=== PATIENT | female | born 1970 | race Caucasian/White ===

== ENCOUNTER 2022-10-29 07:48 | Observation (INO) ==
[2022-10-29] MEDS ORDERED: ONDANSETRON INJ 2 MG/ML 2 ML VIAL IV STA (08:22)
[2022-10-29] MEDS ORDERED: SODIUM CHLORIDE 0.9% 1,000 ML IV ONE (08:22)
[2022-10-29] MEDS ORDERED: KETOROLAC TROMETHAMINE 15 MG/ML VIAL IV STA (08:22)
--- NOTE | 2022-10-29 08:22 | Emergency Department Note ---
History of Present Illness General Chief complaint: Flu Like Symptoms Stated complaint: VOMITING, ABDOMINAL PAIN, COUGH, FEVER Time Seen by Provider: 10/29/22 08:00 History of Present Illness Maximum Pain Intensity: 5 52-year-old female who presents to the emergency department accompanied by her daughter for evaluation of fevers, vomiting/diarrhea, and cough. Patient states for the last 2 days she has been having multiple episodes of vomiting and has been unable to keep anything down. She also notes diarrhea. She has intermittent diffuse abdominal pain which seems to be associated with her episodes of vomiting. She also reports a productive cough for the last 3 weeks. She has been having intermittent fevers and chills. She notes sinus congestion. She denies chest pain or shortness of breath. She reports having oral surgery on Sunday with bone grafting but otherwise been in her usual state of health. She denies any significant past medical history including asthma or COPD. She only takes OTC allergy medication for stational allergies. She is a smoker. She has been taking Tylenol and NyQuil for her symptoms. No recent antibiotic use. Home Medications Medication Instructions Recorded Confirmed Type ibuprofen 200 mg tablet (Advil) 200 mg PO Q6H PRN Pain 10/29/22 10/29/22 History loratadine-pseudoephedrine ER 10 1 tab PO DAILY 10/29/22 10/29/22 History mg-240 mg tablet,extended [id number] (Claritin-D 24 Hour) Allergies Allergy/AdvReac Type Severity Reaction Status Date / Time No Known Allergies Allergy Unverified 10/29/22 12:37 Past Med/Surg History Social History Smoking Status: Current every day smoker Tobacco Type: Cigarettes Preferred Language: Occitan Feels Safe at Home: Yes Physical Exam Vital Signs Vital Signs - 24 hr 10/29/22 07:55 10/29/22 08:57 10/29/22 08:55 Temperature 36.9 C Temperature Source Temporal Artery Scan Pulse Rate 105 H 85 Pulse Rate [Apical] 77 Pulse Rate from SpO2 Sensor Pulse Rhythm [Apical] Respiratory Rate 16 14 Respiratory Effort / Characteristics Non-Labored Respiratory Depth Normal Respiratory Pattern Blood Pressure 132/92 Blood Pressure [Right Arm] 115/78 Blood Pressure Mean 105 Blood Pressure Mean [Right Arm] 90 Pulse Oximetry 96 94 Oxygen Delivery Method Room Air Room Air Sepsis Recent Fever Within 48 Hours Yes Sepsis New/Unexplained Change in Mental Status No Sepsis Action Taken by Nursing No Action Required 10/29/22 09:00 10/29/22 09:30 10/29/22 10:00 Temperature Temperature Source Pulse Rate 71 69 69 Pulse Rate [Apical] Pulse Rate from SpO2 Sensor 71 68 70 Pulse Rhythm [Apical] Respiratory Rate 17 13 14 Respiratory Effort / Characteristics Respiratory Depth Respiratory Pattern Blood Pressure Blood Pressure [Right Arm] Blood Pressure Mean Blood Pressure Mean [Right Arm] Pulse Oximetry 97 96 95 Oxygen Delivery Method Sepsis Recent Fever Within 48 Hours Sepsis New/Unexplained Change in Mental Status Sepsis Action Taken by Nursing 10/29/22 10:30 10/29/22 10:30 10/29/22 11:00 Temperature Temperature Source Pulse Rate 76 67 Pulse Rate [Apical] Pulse Rate from SpO2 Sensor 75 67 Pulse Rhythm [Apical] Respiratory Rate 13 11 L Respiratory Effort / Characteristics Respiratory Depth Respiratory Pattern Blood Pressure 126/61 Blood Pressure [Right Arm] Blood Pressure Mean 84 Blood Pressure Mean [Right Arm] Pulse Oximetry 94 94 Oxygen Delivery Method Room Air Room Air Sepsis Recent Fever Within 48 Hours Sepsis New/Unexplained Change in Mental Status Sepsis Action Taken by Nursing 10/29/22 11:01 10/29/22 11:01 10/29/22 11:30 Temperature Temperature Source Pulse Rate 69 75 Pulse Rate [Apical] Pulse Rate from SpO2 Sensor 69 75 Pulse Rhythm [Apical] Respiratory Rate 11 L 13 Respiratory Effort / Characteristics Respiratory Depth Respiratory Pattern Blood Pressure 136/79 Blood Pressure [Right Arm] Blood Pressure Mean 105 Blood Pressure Mean [Right Arm] Pulse Oximetry 95 93 Oxygen Delivery Method Room Air Room Air Sepsis Recent Fever Within 48 Hours Sepsis New/Unexplained Change in Mental Status Sepsis Action Taken by Nursing 10/29/22 12:23 10/29/22 12:30 10/29/22 13:00 Temperature Temperature Source Pulse Rate 74 Pulse Rate [Apical] 75 Pulse Rate from SpO2 Sensor 75 Pulse Rhythm [Apical] Regular Respiratory Rate 14 Respiratory Effort / Characteristics Non-Labored Spontaneous Respiratory Depth Normal Respiratory Pattern Regular Blood Pressure 126/66 Blood Pressure [Right Arm] 136/64 Blood Pressure Mean 75 Blood Pressure Mean [Right Arm] 88 Pulse Oximetry 94 92 Oxygen Delivery Method Room Air Room Air Sepsis Recent Fever Within 48 Hours Sepsis New/Unexplained Change in Mental Status Sepsis Action Taken by Nursing 10/29/22 13:00 10/29/22 13:30 10/29/22 14:00 Temperature Temperature Source Pulse Rate 68 Pulse Rate [Apical] Pulse Rate from SpO2 Sensor 71 69 Pulse Rhythm [Apical] Respiratory Rate 12 Respiratory Effort / Characteristics Respiratory Depth Respiratory Pattern Blood Pressure 126/63 Blood Pressure [Right Arm] Blood Pressure Mean 88 Blood Pressure Mean [Right Arm] Pulse Oximetry 94 94 Oxygen Delivery Method Room Air Room Air Sepsis Recent Fever Within 48 Hours Sepsis New/Unexplained Change in Mental Status Sepsis Action Taken by Nursing 10/29/22 14:00 Temperature Temperature Source Pulse Rate 73 Pulse Rate [Apical] Pulse Rate from SpO2 Sensor 72 Pulse Rhythm [Apical] Respiratory Rate 16 Respiratory Effort / Characteristics Respiratory Depth Respiratory Pattern Blood Pressure Blood Pressure [Right Arm] Blood Pressure Mean Blood Pressure Mean [Right Arm] Pulse Oximetry 95 Oxygen Delivery Method Room Air Sepsis Recent Fever Within 48 Hours Sepsis New/Unexplained Change in Mental Status Sepsis Action Taken by Nursing Constitutional: alert and oriented x3. no acute distress. Nontoxic HEENT: normocephalic, atraumatic. normal conjunctiva.PERRLA. EOM's grossly intact. TMs pearly taylor without effusion. Pharynx pink without exudate. Tonsils nonenlarged. Mucus membranes moist Neck: neck is supple, nontender. No cervical lymphadenopathy Respiratory: lungs are clear to auscultation without wheezes, rhonchi, or rales bilaterally. equal chest rise. normal respiratory effort, no accessory muscle use. Cardiovascular: normal heart sounds without murmur. regular rate and rhythm. GI: abdomen is soft, nondistended. Mild diffuse abdominal tenderness to palpation. No palpable masses. No rebound tenderness or guarding. No CVA tenderness MSK: Moves all 4 extremities spontaneously Peripheral vascular: extremities warm and well perfused Neuro: without focal neuro deficits. CNII-XII intact. Speech clear, tongue midline, without facial droop. Strength equal throughout all for extremities. Psych:appropriate mood and affect. Course Reevaluation(s) Reevaluation #1: 10a: Resting comfortably in bed. She reports feeling much better after the fluids, Zofran and Toradol. She no longer feels nauseous and her abdominal pain is improved. She was updated on labs and imaging to this point. Labs demonstrate significant transaminitis with ALT 1435 and AST 753. Alk phos and total bilirubin within normal limits. No leukocytosis or acute anemia. Normal renal function. Normal lipase. CXR unremarkable. Patient does report frequent Tylenol use over the last 2 to 3 days from her dental surgery but otherwise nothing prior. Denies alcohol use. No history of elevated liver enzymes/hepatitis. Discussed adding on acute hepatitis panel, monotest as well as liver ultrasound for further evaluation. She was agreeable to this. Reevaluation #2: 1235p: Liver US demonstrates cholelithiasis and biliary sludge with gallbladder mildly distended/thickened measuring 3 to 4 mm. There is trace pericholecystic fluid. Common bile duct measuring 0.6 cm. Acute cholecystitis cannot be excluded. 1250: Consult to general surgery Dr. Kumar given ultrasound findings was made. She reviewed lab and imaging results and has low suspicion for acute cholecystitis given isolated transaminitis with no elevated alk phos or total bilirubin. She suspects a primary liver issue ie viral etiology and recommended admission to the medicine service for further work-up. No indication for emergent surgical intervention at this time. Hepatitis panel still pending. These recommendations were relayed to patient and she was agreeable to admission to the hospital for further work-up. 1312p: Case discussed with hospitalist, Dr. Mercado, who graciously accepted patient to his service for further evaluation Administered Medications Discontinued Medications Sodium Chloride (Nss 1000ml) 1,000 mls @ 999 mls/hr IV .Q1H1M ONE Stop: 10/29/22 09:22 Last Infusion: 10/29/22 09:49 Dose: 0 mls/hr Documented By: Admin: 10/29/22 08:52 Dose: 999 mls/hr Documented By: JEFFERY Ioversol (Optiray 320 100ml) 94 ml IV ONCE ONE Stop: 10/29/22 14:13 Last Admin: 10/29/22 14:13 Dose: 94 ml Documented By: NAIDA Ketorolac Tromethamine (Ketorolac Tromethamine 15 Mg/Ml Vial) 15 mg IV NOW STA Stop: 10/29/22 08:23 Last Admin: 10/29/22 08:54 Dose: 15 mg Documented By: JEFFERY Ondansetron HCl (Ondansetron Inj 2 Mg/Ml 2 Ml Vial) 4 mg IV NOW STA Stop: 10/29/22 08:23 Last Admin: 10/29/22 08:54 Dose: 4 mg Documented By: JEFFERY Medical Decision Making Differential Diagnosis Viral URI, otitis media, strep pharyngitis, pneumonia, influenza, ACS, pancreatitis, acute cholecystitis, urinary tract infection, sepsis, as well as other pathologies. Laboratory Data Attestation: I reviewed the patient's lab results. 10/29/22 08:45 10/29/22 08:45 Lab Results 10/29/22 10/29/22 10/29/22 Range/Units 08:45 08:45 08:45 WBC 7.25 (4.8-10.8) K/ul RBC 4.99 (4.20-5.40) M/uL Hgb 16.0 (12.0-16.0) g/dl Hct 44.1 (37.0-47.0) % MCV 88.4 (80.0-100.0) fL MCH 32.1 (25.0-34.0) pg MCHC 36.3 H (32.0-36.0) g/dL RDW Std Deviation 42.5 (36.4-46.3) fL RDW Coeff of Vu 13.2 (11.5-14.5) % Plt Count 222 (130-400) K/uL MPV 9.8 (9.4-12.4) fL Immature Gran % (Auto) 0.3 % Neut % (Auto) 63.4 % Lymph % (Auto) 25.2 % Motley % (Auto) 7.4 % Eos % (Auto) 3.0 % Baso % (Auto) 0.7 % Neut # (Auto) 4.59 (1.40-6.50) K/uL Lymph # (Auto) 1.83 (1.20-3.40) K/uL Motley # (Auto) 0.54 (0.11-0.59) K/uL Eos # (Auto) 0.22 (0.00-0.50) K/uL Baso # (Auto) 0.05 (0.00-0.20) K/uL Immature Gran # (Auto) 0.02 (0.01-0.20) K/uL PT (9.0-12.0) Seconds INR (0.9-1.1) Sodium 133 L (136-145) mmol/L Potassium 3.7 (3.5-5.1) mmol/L Chloride 99 (98-107) mmol/L Carbon Dioxide 23 (21-32) mmol/L Anion Gap 11 (3-11) BUN 11 (6-23) mg/dl Creatinine 0.57 L (0.6-1.2) mg/dl Est Cr Clr Drug Dosing Not Reportable Est GFR ( Amer) 123.5 ml/min Est GFR (Non-Af Amer) 106.6 ml/min BUN/Creatinine Ratio 19.3 (10-20) Glucose 104 H (70-99(Fasting)) mg/dl Calcium 9.0 (8.6-10.3) mg/dl Total Bilirubin 0.6 (0.2-1.0) mg/dl AST 753 H (13-39) U/L ALT 1454 H (7-52) U/L Alkaline Phosphatase 68 (34-104) U/L Troponin I High Sens 7.2 (0-14) pg/ml Total Protein 6.9 (6.0-8.3) gm/dl Albumin 4.0 (3.4-5.0) gm/dl Globulin 2.9 (2.5-4.0) gm/dl Albumin/Globulin Ratio 1.4 (0.9-2) Lipase 9 L (11-82) U/L Urine Color Urine Appearance (Clear) Urine pH (4.5-7.5) Ur Specific Webster (1.000-1.030) Urine Protein (Negative) Urine Glucose (UA) (Negative) Urine Ketones (Negative) Urine Blood (Negative) Urine Nitrite (Negative) Urine Bilirubin (Negative) Urine Urobilinogen (Negative) Ur Leukocyte Esterase (Negative) Urine WBC (Auto) (0-5) /hpf Urine RBC (Auto) (0-4) /hpf U Hyaline Cast (Auto) (0-5) /lpf U Epithel Cells (Auto) (0-5) /lpf Urine Bacteria (Auto) (Negative) Urine Mucus (None Prsent) Urine Yeast SARS-CoV-2 (PCR) (Negative) Monoscreen Negative (Negative) Influenza Type A (PCR) (Neg) Influenza Type B (PCR) (Neg) RSV (RT-PCR) (Neg) 10/29/22 10/29/22 10/29/22 Range/Units 08:45 08:50 10:13 WBC (4.8-10.8) K/ul RBC (4.20-5.40) M/uL Hgb (12.0-16.0) g/dl Hct (37.0-47.0) % MCV (80.0-100.0) fL MCH (25.0-34.0) pg MCHC (32.0-36.0) g/dL RDW Std Deviation (36.4-46.3) fL RDW Coeff of Vu (11.5-14.5) % Plt Count (130-400) K/uL MPV (9.4-12.4) fL Immature Gran % (Auto) % Neut % (Auto) % Lymph % (Auto) % Motley % (Auto) % Eos % (Auto) % Baso % (Auto) % Neut # (Auto) (1.40-6.50) K/uL Lymph # (Auto) (1.20-3.40) K/uL Motley # (Auto) (0.11-0.59) K/uL Eos # (Auto) (0.00-0.50) K/uL Baso # (Auto) (0.00-0.20) K/uL Immature Gran # (Auto) (0.01-0.20) K/uL PT 12.0 (9.0-12.0) Seconds INR 1.1 (0.9-1.1) Sodium (136-145) mmol/L Potassium (3.5-5.1) mmol/L Chloride (98-107) mmol/L Carbon Dioxide (21-32) mmol/L Anion Gap (3-11) BUN (6-23) mg/dl Creatinine (0.6-1.2) mg/dl Est Cr Clr Drug Dosing Est GFR ( Amer) ml/min Est GFR (Non-Af Amer) ml/min BUN/Creatinine Ratio (10-20) Glucose (70-99(Fasting)) mg/dl Calcium (8.6-10.3) mg/dl Total Bilirubin (0.2-1.0) mg/dl AST (13-39) U/L ALT (7-52) U/L Alkaline Phosphatase (34-104) U/L Troponin I High Sens (0-14) pg/ml Total Protein (6.0-8.3) gm/dl Albumin (3.4-5.0) gm/dl Globulin (2.5-4.0) gm/dl Albumin/Globulin Ratio (0.9-2) Lipase (11-82) U/L Urine Color Yellow Urine Appearance Cloudy A (Clear) Urine pH 6.0 (4.5-7.5) Ur Specific Webster 1.012 (1.000-1.030) Urine Protein Negative (Negative) Urine Glucose (UA) Negative (Negative) Urine Ketones 2+ H (Negative) Urine Blood Negative (Negative) Urine Nitrite Negative (Negative) Urine Bilirubin Negative (Negative) Urine Urobilinogen Negative (Negative) Ur Leukocyte Esterase 1+ H (Negative) Urine WBC (Auto) 10-30 H (0-5) /hpf Urine RBC (Auto) 0-4 (0-4) /hpf U Hyaline Cast (Auto) 5-10 H (0-5) /lpf U Epithel Cells (Auto) >30 H (0-5) /lpf Urine Bacteria (Auto) 1+ H (Negative) Urine Mucus Present A (None Prsent) Urine Yeast Not Reportable SARS-CoV-2 (PCR) NEGATIVE (Negative) Monoscreen (Negative) Influenza Type A (PCR) Negative (Neg) Influenza Type B (PCR) Negative (Neg) RSV (RT-PCR) Negative (Neg) Imaging Data My Impression: CXR per my interpretation without focal consolidation, pleural effusion or pneumothorax Radiologist's Impression: Chest X-Ray 10/29/22 08:14 SINGLE VIEW CHEST CLINICAL HISTORY: Cough FINDINGS: An AP, portable, upright chest radiograph is obtained. No prior studies are available for comparison at the time of dictation. The cardiomediastinal silhouette is unremarkable. The lungs and pleural spaces are clear. No pneumothorax is seen. The bony thorax is grossly intact. IMPRESSION: No active disease in the chest. ACT 112: Negative or not required by law. Electronically signed by: James Machuca M.D. 10/29/2022 8:48 AM Liver Ultrasound 10/29/22 10:07 ULTRASOUND RIGHT UPPER QUADRANT ABDOMEN CLINICAL HISTORY: Elevated hepatic transaminases. COMPARISON STUDY: No priors. TECHNIQUE: Real-time, grayscale, and color flow sonography of the right upper quadrant of the abdomen was performed. Images are reviewed in the transverse and longitudinal planes. FINDINGS: Liver: The liver is normal in size and echotexture. There is no intrahepatic biliary ductal dilatation. The main portal vein is patent. Gallbladder: A 7 mm shadowing calculus is noted. The gallbladder is mildly distended and contains both stones and sludge. The gallbladder wall is mildly thickened and edematous measuring 3 to 4 mm. There is trace pericholecystic fl uid. A sonographic Ahuja's sign is reportedly absent. The common bile duct measures up to 0.6 cm in diameter. Pancreas: Visualized portions of the pancreatic head and body are normal in appearance. The splenic vein is patent. Right kidney: Survey images of the right kidney demonstrate normal size and echotexture. There is no hydronephrosis. Ascites: None. IMPRESSION: 1. Cholelithiasis and biliary sludge within an abnormal appearing gallbladder. Acute cholecystitis is not excluded. Correlated with clinical and laboratory findings. If warranted this could be further assessed with a nuclear hepatic biliary scan. 2. There is no intra or extrahepatic biliary ductal dilatation. ACT 112: Negative or not required by law. Electronically signed by: James Machuca M.D. 10/29/2022 12:38 PM Abdomen/Pelvis CT 10/29/22 13:[address] WITH IV CONTRAST CT DOSE: 1340.23 mGy.cm HISTORY: Left lower quadrant abdominal pain. TECHNIQUE: Multiaxial CT images of the abdomen and pelvis were performed following the use of intravenous contrast. A dose lowering technique was ut ilized adhering to the principles of ALARA. COMPARISON STUDY: Abdominal ultrasound 10/29/2022. FINDINGS: The lung bases are clear. No pneumoperitoneum. No pneumatosis. No acute fractures identified. There is a punctate stone within the gallbladder. No gallbladder wall thickening. The liver, spleen, right adrenal gland, and pancreas are unremarkable. A 7 mm hypodense lesion within the right kidney is too small to characterize but favors a cyst. There is a 9 mm right renal stone. Normal left kidney. No ureteral stones. No hydronephrosis. There is a duplicated right renal collecting system. The ureters likely joint proximal to the right ureterovesical junction. There is a 1.5 cm indeterminate left adrenal gland nodule. The main portal vein is patent. No retroperitoneal lymphadenopathy. 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 The left external iliac artery is widely patent. The bladder, uterus, bilateral adnexa are unremarkable. No pelvic free fluid. Colonic diverticulosis. No evidence for acute diverticulitis. No bowel wall thickening or obstruction. Normal appendix. IMPRESSION: 1. No bowel wall thickening or obstruction. 2. Normal appendix. 3. Colonic diverticulosis. No evidence for acute diverticulitis. 4. Right-sided nephrolithiasis. No ureteral stones. No hydronephrosis. 5. Cholelithiasis. 6. A 1.5 cm indeterminate left adrenal gland nodule. 7. 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 The left external iliac artery is widely patent. This is age-indeterminate but likely chronic. ACT 112: Negative or not required by law. Electronically signed by: Arnold Guy M.D. 10/29/2022 2:28 PM MDM Narrative 52-year-old female who presents to the emergency department accompanied by daughter for evaluation of vomiting and diarrhea and cold-like symptoms. Review of pertinent visits and past medical history performed. Vital signs in ED stable, afebrile. Patient seen and evaluated as above. Please see course section for details. Physical exam relatively benign. She did have some mild diffuse abdominal tenderness but no focal tenderness including in the right upper quadrant. Work-up today significant for transaminitis otherwise unremarkable. I suspect a viral gastroenteritis based on presentation however not entirely clear the etiology. Hepatitis panel pending. We discussed admission to the hospital for further evaluation. Patient was agreeable to this. Case was discussed with hospitalist, Dr. Mercado who graciously excepted patient to his service for further evaluation. She was admitted in stable condition. Case was discussed with ED attending, Dr. Roper who agrees with work-up and treatment plan Impression & Plan Gastroenteritis, Elevated liver enzymes, Cholelithiasis, Cough, Abdominal pain, diffuse Discharge Plan Visit Data Chief Complaint: Flu Like Symptoms Stated Complaint: VOMITING, ABDOMINAL PAIN, COUGH, FEVER ED Provider: Tamia Roper ED Midlevel Provider: Ursula Alfonso Discharge Problem: Gastroenteritis, Elevated liver enzymes, Cholelithiasis, Cough, Abdominal pain, diffuse Patient Disposition: Admitted As Inpatient Forms Stand Alone Forms: [facility] [employer] Prescriptions Prescriptions: No Action Claritin-D 24 Hour 10-240 mg Tablet Extended Release 24 Hr 1 tab PO DAILY ibuprofen [Advil] 200 mg Tablet 200 mg PO Q6H PRN (Reason: Pain) Referrals Referrals: PCP,NO [Primary Care Provider] -
--- NOTE | 2022-10-29 08:50 | XRay Report ---
SINGLE VIEW CHEST CLINICAL HISTORY: Cough FINDINGS: An AP, portable, upright chest radiograph is obtained. No prior studies are available for c omparison at the time of dictation. The cardiomediastinal silhouette is unremarkable. The lungs and p leural spaces are clear. No pneumothorax is seen. The bony thorax is grossly intact. IMPRESSION: No active disease in the chest. ACT 112: Negative or not required by law. Electronically signed by: James Machuca M.D. 10/29/2022 8:48 AM
[2022-10-29 09:24] LABS: Basophils # (auto) 0.05 K/uL (0.00-0.20); Basophils % (auto) 0.7 %; Eosinophils # (auto) 0.22 K/uL (0.00-0.50); Hematocrit (blood only) 44.1 % (37.0-47.0); Immature Granulocytes # (auto) 0.02 K/uL (0.01-0.20); Immature Granulocytes % (auto) 0.3 %; Lymphocytes # (auto) 1.83 K/uL (1.20-3.40); Lymphocytes % (auto) 25.2 %; Mean Corpuscular Hemoglobin 32.1 pg (25.0-34.0); Mean Corpuscular Hgb Conc 36.3 g/dL (32.0-36.0); Mean Corpuscular Volume 88.4 fL (80.0-100.0); Mean Platelet Volume 9.8 fL (9.4-12.4); Monocytes # (auto) 0.54 K/uL (0.11-0.59); Monocytes % (auto) 7.4 %; Neutrophils # (auto) 4.59 K/uL (1.40-6.50); Neutrophils % (auto) 63.4 %; Platelet Count 222 K/uL (130-400); RDW Coefficient of Variation 13.2 % (11.5-14.5); RDW Standard Deviation 42.5 fL (36.4-46.3); Red Blood Count 4.99 M/uL (4.20-5.40); White Blood Count 7.25 K/ul (4.8-10.8)
[2022-10-29 09:35] LABS: Anion Gap 11 (3-11); BUN Creatinine Ratio 19.3 (10-20); Blood Urea Nitrogen 11 mg/dl (6-23); Carbon Dioxide 23 mmol/L (21-32); Chloride 99 mmol/L (98-107); Est GFR (African American) 123.5 ml/min; Est GFR (Non-African American) 106.6 ml/min; Glucose 104 mg/dl (70-99(Fasting)); Potassium 3.7 mmol/L (3.5-5.1); Sodium 133 mmol/L (136-145)
[2022-10-29 09:41] LABS: Troponin I High Sensitivity 7.2 pg/ml (0-14)
[2022-10-29 09:51] LABS: Influenza A virus by PCR Negative (Neg); Influenza B virus by PCR Negative (Neg); RSV by PCR Negative (Neg); SARS CoV2 RNA(COVID-19) Ceph NEGATIVE (Negative)
[2022-10-29 09:59] LABS: Alanine Aminotransferase 1454 U/L (7-52); Albumin Globulin Ratio 1.4 (0.9-2); Alkaline Phosphatase 68 U/L (34-104); Aspartate Aminotransferase 753 U/L (13-39); Bilirubin,Total 0.6 mg/dl (0.2-1.0); Globulin 2.9 gm/dl (2.5-4.0); Lipase 9 U/L (11-82); Total Protein 6.9 gm/dl (6.0-8.3)
[2022-10-29 10:45] LABS: Appearance Urine Cloudy (Clear); Bilirubin Urine Negative (Negative); Blood Urine Negative (Negative); Color Urine Yellow; Epithelial Cell Urine Auto >30 /lpf (0-5); Glucose Urine UA Negative (Negative); Ketones Urine 2+ (Negative); Leukocyte Esterase Urine 1+ (Negative); Nitrite Urine Negative (Negative); Protein Urine Negative (Negative); Specific Gravity Urine 1.012 (1.000-1.030); Urobilinogen Urine Negative (Negative)
[2022-10-29 11:05] LABS: Mucus Urine Present (None Prsent)
[2022-10-29 11:06] LABS: Bacteria Urine Automated 1+ (Negative); RBC Urine Automated 0-4 /hpf (0-4)
--- NOTE | 2022-10-29 12:41 | Ultrasound Report ---
ULTRASOUND RIGHT UPPER QUADRANT ABDOMEN CLINICAL HISTORY: Elevated hepatic transaminases. COMPARISON STUDY: No priors. TECHNIQUE: Real-time, grayscale, and color flow sonography of the right upper quadrant of the abdomen was performed. Images are reviewed in the transverse and longitudinal planes. FINDINGS: Liver: The liver is normal in size and echotexture. There is no intrahepatic biliary ductal dilatatio n. The main portal vein is patent. Gallbladder: A 7 mm shadowing calculus is noted. The gallbladder is mildly distended and contains bot h stones and sludge. The gallbladder wall is mildly thickened and edematous measuring 3 to 4 mm. Ther e is trace pericholecystic fluid. A sonographic Ahuja's sign is reportedly absent. The common bile d uct measures up to 0.6 cm in diameter. Pancreas: Visualized portions of the pancreatic head and body are normal in appearance. The splenic v ein is patent. Right kidney: Survey images of the right kidney demonstrate normal size and echotexture. There is no hydronephrosis. Ascites: None. IMPRESSION: 1. Cholelithiasis and biliary sludge within an abnormal appearing gallbladder. Acute cholecystitis is not excluded. Correlated with clinical and laboratory findings. If warranted this could be further a ssessed with a nuclear hepatic biliary scan. 2. There is no intra or extrahepatic biliary ductal dilatation. ACT 112: Negative or not required by law. Electronically signed by: James Machuca M.D. 10/29/2022 12:38 PM
--- NOTE | 2022-10-29 13:20 | History & Physical Report ---
Date of Service October 29, 2022 History of Present Illness Primary Care Provider: NO PCP Allergies Allergy/AdvReac Type Severity Reaction Status Date / Time No Known Allergies Allergy Unverified 10/29/22 12:37 Home Medications Medication Instructions Recorded Confirmed Type ibuprofen 200 mg tablet (Advil) 200 mg PO Q6H PRN Pain 10/29/22 10/29/22 History loratadine-pseudoephedrine ER 10 1 tab PO DAILY 10/29/22 10/29/22 History mg-240 mg tablet,extended [id number] (Claritin-D 24 Hour) Past Med/Surg History Social History Smoking Status: Current every day smoker Tobacco Type: Cigarettes Preferred Language: Jamaican Feels Safe at Home: Yes Results & Data Results & Data Vital Signs (Past 12 Hours) Vital Signs Temp Pulse Pulse Resp BP BP Pulse Ox 10/29/22 13:00 94 10/29/22 13:00 126/66 10/29/22 12:30 74 92 10/29/22 12:23 75 14 136/64 94 10/29/22 11:30 75 13 93 10/29/22 11:01 136/79 10/29/22 11:01 69 11 L 95 10/29/22 11:00 67 11 L 94 10/29/22 10:30 76 13 94 10/29/22 10:30 126/61 10/29/22 10:00 69 14 95 10/29/22 09:30 69 13 96 10/29/22 09:00 71 17 97 10/29/22 08:55 85 10/29/22 08:57 77 14 115/78 94 10/29/22 07:55 36.9 C 105 H 16 132/92 96 O2 Del Method 10/29/22 13:00 Room Air 10/29/22 13:00 10/29/22 12:30 Room Air 10/29/22 12:23 Room Air 10/29/22 11:30 Room Air 10/29/22 11:01 10/29/22 11:01 Room Air 10/29/22 11:00 Room Air 10/29/22 10:30 Room Air 10/29/22 10:30 10/29/22 10:00 10/29/22 09:30 10/29/22 09:00 09/03/23 08:55 10/29/22 08:57 Room Air 10/29/22 07:55 Room Air PG Care Time/CCT Total # of Minutes Spent Total Time Spent with Patient: Total time spent is greater than 50% in coordination of care (as documented) at patient's floor/unit and/or counseling patient: Coding Diagnoses
[2022-10-29] MEDS ORDERED: OPTIRAY 320 100ml IV ONE (14:12)
[2022-10-29 14:19] LABS: INR 1.1 (0.9-1.1)
--- NOTE | 2022-10-29 14:30 | CT Scan Report ---
ABDOMEN AND PELVIS CT WITH IV CONTRAST CT DOSE: 1340.23 mGy.cm HISTORY: Left lower quadrant abdominal pain. TECHNIQUE: Multiaxial CT images of the abdomen and pelvis were performed following the use of intrave nous contrast. A dose lowering technique was utilized adhering to the principles of ALARA. COMPARISON STUDY: Abdominal ultrasound 10/29/2022. FINDINGS: The lung bases are clear. No pneumoperitoneum. No pneumatosis. No acute fractures identifie d. There is a punctate stone within the gallbladder. No gallbladder wall thickening. The liver, splee n, right adrenal gland, and pancreas are unremarkable. A 7 mm hypodense lesion within the right kidne y is too small to characterize but favors a cyst. There is a 9 mm right renal stone. Normal left kidn ey. No ureteral stones. No hydronephrosis. There is a duplicated right renal collecting system. The u reters likely joint proximal to the right ureterovesical junction. There is a 1.5 cm indeterminate le ft adrenal gland nodule. The main portal vein is patent. No retroperitoneal lymphadenopathy. 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 The left external iliac artery is widely patent. The bladder, uterus, bilateral adnexa are unremarkable. No pelvic free fluid. Colonic diverticulosis. No evidence for acute diverticulitis . No bowel wall thickening or obstruction. Normal appendix. IMPRESSION: 1. No bowel wall thickening or obstruction. 2. Normal appendix. 3. Colonic diverticulosis. No evidence for acute diverticulitis. 4. Right-sided nephrolithiasis. No ureteral stones. No hydronephrosis. 5. Cholelithiasis. 6. A 1.5 cm indeterminate left adrenal gland nodule. 7. 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 The left external iliac artery is widely patent. This is age-indeterminate but likely chronic. ACT 112: Negative or not required by law. Electronically signed by: Arnold Guy M.D. 10/29/2022 2:28 PM
[2022-10-29] MEDS ORDERED: HYDROmorphone INJ 0.5 MG/0.5 ML SYR IV PRN (14:44)
--- NOTE | 2022-10-29 14:58 | History & Physical Report ---
Date of Service October 29, 2022 Assessment & Plan (1) Gastroenteritis: Plan: Presented with nausea, vomiting, epigastric discomfort, fever with chills and diarrhea for the last 2 days Likely has viral gastroenteritis Will give IV fluid and electrolyte replacement Zofran for nausea and vomiting (2) Elevated liver enzymes: Plan: Noted to have very high LFTs involving AST and ALT without any obstructive features Denies any history of IV drug abuse, any blood transfusion, any prior history of hepatitis Ultrasound of the liver did show cholelithiasis without any cholecystitis Hepatitis panel has been sent We will monitor LFTs (3) Cholelithiasis: Plan: Very high LFTs Likely secondary to viral hepatitis Ultrasound did not show-cholelithiasis with biliary sludge with an abnormal appearing gallbladder Acute cholecystitis cannot be excluded We will consult surgery and keep the patient n.p.o. for now We will get a HIDA scan (4) Chronic sinusitis: Plan: Continue with Jaqueline-D DVT prophylaxis Subcu heparin CODE STATUS Full History of Present Illness Chief Complaint: Nausea, vomiting, epigastric discomfort, fever with chills and diarrhea for the last 3 days Primary Care Provider: NO PCP She is a 52-year-old obese female without significant past medical history except chronic sinusitis on Claritin-D regularly apparently is from [place] and trying to settle in [place]. Initial evaluation in the [facility] system was in June and was advised to have baseline lab tests but she did not go for any test. She has been complaining of nausea, vomiting, epigastric discomfort, fever with chills and diarrhea for the last 2 days. Condition got worse as of today and she is here for check up. She did not take her temperature at home but felt chills with sweating intermittently. Denies any right upper quadrant pain but complains to epigastric discomfort with diarrhea as mentioned earlier. No prior attack of this kind of symptoms and the no history of gallbladder disease. Denies any chest pain, palpitation or shortness of breath. He has been feeling a little better following IV fluid and antinausea medication in the emergency room. Blood pressures were abnormal for elevated transaminases without any obstructive features and ultrasound did show cholelithiasis with gallbladder distention but no acute cholecystitis and CT scan of the abdomen and pelvis were unremarkable. She was admitted with possible gastritis/gastroenteritis and abnormal LFTs to rule out colitis cystitis and or any viral hepatitis. Allergies Allergy/AdvReac Type Severity Reaction Status Date / Time No Known Allergies Allergy Unverified 10/29/22 12:37 Home Medications Medication Instructions Recorded Confirmed Type ibuprofen 200 mg tablet (Advil) 200 mg PO Q6H PRN Pain 10/29/22 10/29/22 History loratadine-pseudoephedrine ER 10 1 tab PO DAILY 10/29/22 10/29/22 History mg-240 mg tablet,extended [id number] (Claritin-D 24 Hour) Past Med/Surg History Social History Smoking Status: Current every day smoker Tobacco Type: Cigarettes Hx Alcohol Use: No Hx Substance Use: No Preferred Language: Nigerien Head Animal Keeper Required: No Beliefs That Will Affect Care: None Current Living Situation: Family Feels Safe at Home: Yes Safety Concerns: Feels Safe At This Time Review of Systems Review of Systems: All systems reviewed and are unremarkable except as noted below Gastrointestinal: Nausea, vomiting and diarrhea at home with epigastric discomfort Physical Exam Physical Exam: Lying in bed comfortably Constitutional: well developed, well nourished, + ill appearing and + obese Results & Data Results & Data Vital Signs (Past 12 Hours) Vital Signs Temp Pulse Pulse Resp BP BP Pulse Ox 10/29/22 14:00 73 16 95 10/29/22 14:00 126/63 10/29/22 13:30 68 12 94 10/29/22 13:00 94 10/29/22 13:00 126/66 10/29/22 12:30 74 92 10/29/22 12:23 75 14 136/64 94 10/29/22 11:30 75 13 93 10/29/22 11:01 136/79 10/29/22 11:01 69 11 L 95 10/29/22 11:00 67 11 L 94 10/29/22 10:30 76 13 94 10/29/22 10:30 126/61 10/29/22 10:00 69 14 95 10/29/22 09:30 69 13 96 10/29/22 09:00 71 17 97 10/29/22 08:55 85 10/29/22 08:57 77 14 115/78 94 10/29/22 07:55 36.9 C 105 H 16 132/92 96 O2 Del Method 10/29/22 14:00 Room Air 10/29/22 14:00 10/29/22 13:30 Room Air 10/29/22 13:00 Room Air 10/29/22 13:00 10/29/22 12:30 Room Air 10/29/22 12:23 Room Air 10/29/22 11:30 Room Air 10/29/22 11:01 10/29/22 11:01 Room Air 10/29/22 11:00 Room Air 10/29/22 10:30 Room Air 10/29/22 10:30 10/29/22 10:00 10/29/22 09:30 10/29/22 09:00 10/29/22 08:55 10/29/22 08:57 Room Air 10/29/22 07:55 Room Air Laboratory Results Short CBC 10/29/22 Range/Units 08:45 WBC 7.25 (4.8-10.8) K/ul Hgb 16.0 (12.0-16.0) g/dl Hct 44.1 (37.0-47.0) % Plt Count 222 (130-400) K/uL BMP 10/29/22 08:45 Sodium 133 L Potassium 3.7 Chloride 99 Carbon Dioxide 23 BUN 11 Creatinine 0.57 L Glucose 104 H Calcium 9.0 Liver Function 10/29/22 Range/Units 08:45 Total Bilirubin 0.6 (0.2-1.0) mg/dl AST 753 H (13-39) U/L ALT 1454 H (7-52) U/L Alkaline Phosphatase 68 (34-104) U/L Albumin 4.0 (3.4-5.0) gm/dl Urine 10/29/22 Range/Units 10:13 Urine Color Yellow Urine Appearance Cloudy A (Clear) Urine pH 6.0 (4.5-7.5) Ur Specific [place] 1.012 (1.000-1.030) Urine Protein Negative (Negative) Urine Glucose (UA) Negative (Negative) Medications Administered Current Inpatient Medications Hydromorphone HCl (Hydromorphone Inj 0.5 Mg/0.5 Ml Syr) 0.25 mg IV Q6H PRN PRN Reason: Pain Stop: 11/12/22 14:43 Potassium Chloride/Sodium Chloride (Normal Saline W/20 Meq Kcl) 20 meq in 1,000 mls @ 125 mls/hr IV .Q8H [place]; Protocol Stop: 10/30/22 22:44 Pantoprazole Sodium 40 mg/ (Syringe) 10 mls @ 5 mls/min IV BID [place] Stop: 11/28/22 20:59 Ondansetron HCl (Ondansetron Inj 2 Mg/Ml 2 Ml Vial) 4 mg IV Q6H [place] Stop: 11/28/22 14:44 Code Status & VTE Plan VTE Prophylaxis Plan VTE Prophylaxis will be ordered: Yes
[2022-10-29] MEDS: NSS + 20MEQ KCL 20 MEQ/1,000 ML BAG IV SCH (20:51)
[2022-10-29] MEDS: HEPARIN SOD 5,000 UNIT/0.5 ML VIAL SQ SCH (20:52)
[2022-10-29] MEDS: PANTOprazole 40 MG in SYRINGE 0 ML IV SCH (20:52)
[2022-10-29] MEDS: ONDANSETRON INJ 2 MG/ML 2 ML VIAL IV SCH (20:53)
--- NOTE | 2022-10-29 21:15 | Surgery Consultation ---
Date of Consultation October 29, 2022 Assessment & Plan (1) Cholelithiasis: The patient has been admitted on the hospitalist service. We recommend proceeding as follows: The patient does have noted gallstones on her abdominal imaging but there is no definitive evidence of cholecystitis. Prior to entertaining any surgical intervention we would recommend obtaining a HIDA scan which has been ordered by the medical service. Pending results of this we will have further discussion with the patient that surgery is the best option. Patient is noted to have elevated transaminases however her bilirubin alkaline phosphatase are nonelevated. The admitting hospitalist feel that this may be related to hepatitis and appropriate labs have been sent which we will follow for the results of Additional recommendations to be forthcoming based on pending labs and imaging History of Present Illness Reason for Consultation: Abnormal gallbladder imaging Attending Physician: Courtney Mercado MD History of Present Illness This is a 52-year-old female who presented to the emergency department secondary to sudden onset of nausea and vomiting along with epigastric and lower abdominal pain with associated diarrhea and fevers approximately 2 days ago. The patient says that she did not get better over the ensuing 2 days so she presented to the emergency department. She notes that she has not had any postprandial pain over the past several weeks to months. She has never had any abdominal surgeries. She does not note any modifying factors related to her above noted presenting complaints. Since arrival to the hospital the patient has had labs and imaging which independent reviewed. A chest x-ray showed no evidence of pneumonia. A liver ultrasound did show gallstones with some biliary sludge. Acute cholecystitis could not be definitively ascertained on this imaging study. A CT scan of the abdomen pelvis was also performed that showed cholelithiasis. There is no gallbladder wall thickening noted on this study. Labs included a CBC were white blood cell count, hemoglobin, hematocrit, and platelet count were normal. Chemistry profile showed sodium was 133 with a normal potassium. BUN was 11 and creatinine was low at 0.57. LFTs showed a total bilirubin of 0.6. AST and ALT were 753 and 1454. There is no elevation of patient's alkaline phosphatase. A urinalysis did show 1+ leukocyte Estrace and 10-30 white blood cells per high- power field. There is 1+ bacteria noted on this study and it was negative for nitrites. Patient was tested for COVID, influenza A, influenza B, and RSV all of which were negative. At the time of my interview the patient was resting comfortably in bed and she was in no distress. Concerning past medical history the patient denies any medical problems Concerning past surgical history the patient denies any prior surgeries Concerning social history the patient does smoke daily. Allergies Allergy/AdvReac Type Severity Reaction Status Date / Time No Known Allergies Allergy Unverified 10/29/22 12:37 Home Medications Medication Instructions Recorded Confirmed Type ibuprofen 200 mg tablet (Advil) 200 mg PO Q6H PRN Pain 10/29/22 10/29/22 History loratadine-pseudoephedrine ER 10 1 tab PO DAILY 10/29/22 10/29/22 History mg-240 mg tablet,extended [id number] (Claritin-D 24 Hour) Patient History Social History Smoking Status: Current every day smoker Tobacco Type: Cigarettes Hx Alcohol Use: No Hx Substance Use: No Preferred Language: Italian Butcher Head Required: No Beliefs That Will Affect Care: None Current Living Situation: Family Feels Safe at Home: Yes Safety Concerns: Feels Safe At This Time Review of Systems Constitutional: + fever and + chills Ear, Nose, Mouth, Throat: no hearing loss Respiratory: no cough and no dyspnea Cardiovascular: no chest pain Gastrointestinal: as per Subjective / HPI Genitourinary: no dysuria Musculoskeletal: no back pain Integumentary: no rash Neurologic: no localized weakness Physical Exam Constitutional: WD/WN, vitals as above Eyes: no conjunctival abnormality ENMT: Ears: no hearing impairment Neck: trachea midline Respiratory: normal respiratory effort, lungs clear to auscultation Cardiovascular: Rate/Rhythm: regular rate and regular rhythm Gastrointestinal (Abdomen): At the time of my exam the patient's abdomen was soft, nonrigid, nondistended, and nontender to palpation. Her exam was essentially entirely benign. Ahuja sign was negative. Musculoskeletal: No calf tenderness Skin: no rashes Neurologic: moves all extremities Psychiatric: A+Ox3, euthymic affect Results & Data Vital Signs (Past 12 Hours) Vital Signs Temp Pulse Pulse Pulse Resp BP BP 10/29/22 19:38 36.8 C 68 18 146/79 H 10/29/22 19:21 36.9 C 85 18 10/29/22 18:31 77 10/29/22 17:00 10/29/22 16:30 10/29/22 16:00 10/29/22 16:00 142/77 H 10/29/22 15:33 10/29/22 15:00 10/29/22 14:37 10/29/22 14:00 73 16 10/29/22 14:00 126/63 10/29/22 13:30 68 12 10/29/22 13:00 10/29/22 13:00 126/66 10/29/22 12:30 74 10/29/22 12:23 75 14 10/29/22 11:30 75 13 10/29/22 11:01 136/79 10/29/22 11:01 69 11 L 10/29/22 11:00 67 11 L 10/29/22 10:30 76 13 10/29/22 10:30 126/61 10/29/22 10:00 69 14 10/29/22 09:30 69 13 BP Pulse Ox O2 Del Method 10/29/22 19:38 93 Room Air 10/29/22 19:21 141/80 H 92 Room Air 10/29/22 18:31 10/29/22 17:00 94 10/29/22 16:30 94 10/29/22 16:00 95 10/29/22 16:00 10/29/22 15:33 89 L 10/29/22 15:00 94 10/29/22 14:37 92 10/29/22 14:00 95 Room Air 10/29/22 14:00 10/29/22 13:30 94 Room Air 10/29/22 13:00 94 Room Air 10/29/22 13:00 10/29/22 12:30 92 Room Air 10/29/22 12:23 136/64 94 Room Air 10/29/22 11:30 93 Room Air 10/29/22 11:01 10/29/22 11:01 95 Room Air 10/29/22 11:00 94 Room Air 10/29/22 10:30 94 Room Air 10/29/22 10:30 10/29/22 10:00 95 10/29/22 09:30 96 PG Care Time/CCT Total # of Minutes Spent Total Time Spent with Patient: Total time spent is greater than 50% in coordination of care (as documented) at patient's floor/unit and/or counseling patient: Coding Level of Care Code 79692 IN/OBS CONSULT LVL 5,80M Diagnoses Cholelithiasis K80.20 Comment This case was discussed with the surgical PA. I agree with the plan
[2022-10-30] MEDS: ONDANSETRON INJ 2 MG/ML 2 ML VIAL IV SCH ×2 (00:54→05:30)
[2022-10-30] MEDS: NSS + 20MEQ KCL 20 MEQ/1,000 ML BAG IV SCH (04:31)
[2022-10-30 06:46] LABS: Basophils # (auto) 0.05 K/uL (0.00-0.20); Basophils % (auto) 0.9 %; Eosinophils # (auto) 0.35 K/uL (0.00-0.50); Hematocrit (blood only) 38.6 % (37.0-47.0); Hemoglobin 13.4 g/dl (12.0-16.0); Immature Granulocytes # (auto) 0.01 K/uL (0.01-0.20); Immature Granulocytes % (auto) 0.2 %; Lymphocytes # (auto) 2.11 K/uL (1.20-3.40); Lymphocytes % (auto) 36.4 %; Mean Corpuscular Hemoglobin 31.1 pg (25.0-34.0); Mean Corpuscular Hgb Conc 34.7 g/dL (32.0-36.0); Mean Corpuscular Volume 89.6 fL (80.0-100.0); Mean Platelet Volume 9.7 fL (9.4-12.4); Monocytes # (auto) 0.45 K/uL (0.11-0.59); Monocytes % (auto) 7.8 %; Neutrophils # (auto) 2.83 K/uL (1.40-6.50); Neutrophils % (auto) 48.7 %; Platelet Count 195 K/uL (130-400); RDW Coefficient of Variation 13.2 % (11.5-14.5); RDW Standard Deviation 43.8 fL (36.4-46.3); Red Blood Count 4.31 M/uL (4.20-5.40)
[2022-10-30 07:43] LABS: Albumin Globulin Ratio 1.5 (0.9-2); Albumin Level 3.5 gm/dl (3.4-5.0); BUN Creatinine Ratio 16.7 (10-20); Bilirubin,Total 0.4 mg/dl (0.2-1.0); Calcium 8.2 mg/dl (8.6-10.3); Est GFR (African American) 125.7 ml/min; Est GFR (Non-African American) 108.5 ml/min; Globulin 2.3 gm/dl (2.5-4.0); Potassium 4.5 mmol/L (3.5-5.1); Total Protein 5.8 gm/dl (6.0-8.3)
[2022-10-30] MEDS: PANTOprazole 40 MG in SYRINGE 0 ML IV SCH (08:29)
[2022-10-30] MEDS: HEPARIN SOD 5,000 UNIT/0.5 ML VIAL SQ SCH (08:29)
[2022-10-30] MEDS ORDERED: NON-FORMULARY MEDICATION (Loratadine-Pseudoephedrine [Claritin-D 24 Hour] 10-240 mg Tablet PO SCH (09:00)
--- NOTE | 2022-10-30 10:36 | Hospitalist Progress Note ---
Date of Service October 30, 2022 Assessment & Plan (1) Gastroenteritis: Plan: Presented with nausea, vomiting, epigastric discomfort, fever with chills and diarrhea for the last 2 days Likely has viral gastroenteritis Will give IV fluid and electrolyte replacement Zofran for nausea and vomiting Symptoms resolved and the patient wants to go home and did not want to stay any longer in the hospital (2) Elevated liver enzymes: Plan: Noted to have very high LFTs involving AST and ALT without any obstructive features Denies any history of IV drug abuse, any blood transfusion, any prior history of hepatitis Ultrasound of the liver did show cholelithiasis without any cholecystitis Hepatitis panel has been sent We will monitor LFTs LFTs are better-but it is panel pending (3) Cholelithiasis: Plan: Very high LFTs Likely secondary to viral hepatitis Ultrasound did not show-cholelithiasis with biliary sludge with an abnormal appearing gallbladder Acute cholecystitis cannot be excluded We will consult surgery and keep the patient n.p.o. for now We will get a HIDA scan She did not want to wait for the HIDA scan She knows that her condition may get worse with acute attack of cholecystitis and she even She was discharged in stable medical condition and was advised to make appointment with her PCP sooner than later (4) Chronic sinusitis: Plan: Continue with Jaqueline-D DVT prophylaxis Subcu heparin CODE STATUS Full Admission and Anticipated Discharge Date Admission Date: October 29, 2022 Subjective 10/30/2022 The patient was seen and examined in medical telemetry unit She has been feeling a lot better and does not have any abdominal discomfort, nausea and or vomiting She does not want to stay any longer in the hospital and does not want to have HIDA scan done She wants to go home even though she knows that her condition may be worse and she may have serious consequences or even from it She was strongly advised to make appointment with primary care doctor as soon as possible Review of Systems Review of Systems: All systems reviewed and are unremarkable except as noted below Gastrointestinal: Nausea, vomiting and diarrhea at home with epigastric discomfort Physical Exam Physical Exam: Lying in bed comfortably Constitutional: well developed, well nourished, + ill appearing and + obese Neck: trachea midline, no thyromegaly Respiratory: no respiratory distress Auscultation: lungs clear to auscultation bilaterally Cardiovascular: Rate/Rhythm: regular rate and regular rhythm; not tachycardic Heart Sounds: normal S1 and normal S2; no murmur Gastrointestinal (Abdomen): Inspection/Auscultation: normal bowel sounds; abdomen not distended Percussion/Palpation: abdomen soft; abdomen nontender Musculoskeletal: No acute arthritis involving any joint Neurologic: normal touch/pain/proprioception and moves all extremities Lymphatic: no cervical or axillary lymphadenopathy Results & Data Results & Data Vital Signs (Past 12 Hours) Vital Signs Temp Pulse Pulse Resp BP Pulse Ox O2 Del Method 10/30/22 07:58 36.8 C 66 16 122/72 95 Room Air 10/30/22 07:21 74 10/30/22 04:20 36.8 C 78 16 140/73 94 Room Air 10/29/22 22:54 36.8 C 68 18 141/64 H 96 Room Air Laboratory Results Short CBC 10/30/22 Range/Units 06:06 WBC 5.80 (4.8-10.8) K/ul Hgb 13.4 (12.0-16.0) g/dl Hct 38.6 (37.0-47.0) % Plt Count 195 (130-400) K/uL BMP 10/30/22 06:06 Sodium 137 Potassium 4.5 D Chloride 110 H Carbon Dioxide 21 BUN 9 Creatinine 0.54 L Glucose 70 Calcium 8.2 L Liver Function 10/30/22 Range/Units 06:06 Total Bilirubin 0.4 (0.2-1.0) mg/dl AST 217 H (13-39) U/L ALT 770 H (7-52) U/L Alkaline Phosphatase 52 (34-104) U/L Albumin 3.5 (3.4-5.0) gm/dl Urine 10/29/22 Range/Units 10:13 Urine Color Yellow Urine Appearance Cloudy A (Clear) Urine pH 6.0 (4.5-7.5) Ur Specific [place] 1.012 (1.000-1.030) Urine Protein Negative (Negative) Urine Glucose (UA) Negative (Negative) Medications Administered Current Inpatient Medications Heparin Sodium (Porcine) (Heparin Sod 5,000 Unit/0.5 Ml Vial) 5,000 units SQ Q12 [place] Stop: 11/28/22 20:59 Last Admin: 10/30/22 08:29 Dose: 5,000 units Hydromorphone HCl (Hydromorphone Inj 0.5 Mg/0.5 Ml Syr) 0.25 mg IV Q6H PRN PRN Reason: Pain Stop: 11/12/22 14:43 Potassium Chloride/Sodium Chloride (Normal Saline W/20 Meq Kcl) 20 meq in 1,000 mls @ 125 mls/hr IV .Q8H [place]; Protocol Stop: 10/31/22 01:59 Last Admin: 10/30/22 04:31 Dose: 125 mls/hr Pantoprazole Sodium 40 mg/ (Syringe) 10 mls @ 5 mls/min IV BID [facility] Stop: 11/28/22 20:59 Last Admin: 10/30/22 08:29 Dose: 5 mls/min Ondansetron HCl (Ondansetron Inj 2 Mg/Ml 2 Ml Vial) 4 mg IV Q6 [facility] Stop: 11/28/22 17:59 Last Admin: 10/30/22 05:30 Dose: 4 mg
--- NOTE | 2022-10-30 16:50 | Discharge Summary ---
Date of Service October 30, 2022 Admission HPI Per Admitting Provider She is a 52-year-old obese female without significant past medical history except chronic sinusitis on Claritin-D regularly apparently is from [place] and trying to settle in [place]. Initial evaluation in the [facility] system was in June and was advised to have baseline lab tests but she did not go for any test. She has been complaining of nausea, vomiting, epigastric discomfort, fever with chills and diarrhea for the last 2 days. Condition got worse as of today and she is here for check up. She did not take her temperature at home but felt chills with sweating intermittently. Denies any right upper quadrant pain but complains to epigastric discomfort with diarrhea as mentioned earlier. No prior attack of this kind of symptoms and the no history of gallbladder disease. Denies any chest pain, palpitation or shortness of breath. He has been feeling a little better following IV fluid and antinausea medication in the emergency room. Blood pressures were abnormal for elevated transaminases without any obstructive features and ultrasound did show cholelithiasis with gallbladder distention but no acute cholecystitis and CT scan of the abdomen and pelvis were unremarkable. She was admitted with possible gastritis/gastroenteritis and abnormal LFTs to rule out colitis cystitis and or any viral hepatitis. Admission Exam Per Admitting Provider Constitutional: alert and oriented x3. no acute distress. Nontoxic HEENT: normocephalic, atraumatic. normal conjunctiva.PERRLA. EOM's grossly intact. TMs pearly taylor without effusion. Pharynx pink without exudate. Tonsils nonenlarged. Mucus membranes moist Neck: neck is supple, nontender. No cervical lymphadenopathy Respiratory: lungs are clear to auscultation without wheezes, rhonchi, or rales bilaterally. equal chest rise. normal respiratory effort, no accessory muscle use. Cardiovascular: normal heart sounds without murmur. regular rate and rhythm. GI: abdomen is soft, nondistended. Mild diffuse abdominal tenderness to palpation. No palpable masses. No rebound tenderness or guarding. No CVA tenderness MSK: Moves all 4 extremities spontaneously Peripheral vascular: extremities warm and well perfused Neuro: without focal neuro deficits. CNII-XII intact. Speech clear, tongue midline, without facial droop. Strength equal throughout all for extremities. Psych:appropriate mood and affect. Principal Diagnosis Acute gastroenteritis, elevated transaminases, gallstones Discharge Exam Lying in bed comfortably Constitutional well developed, well nourished, + ill appearing and + obese Neck trachea midline, no thyromegaly Respiratory no respiratory distress Auscultation: lungs clear to auscultation bilaterally Cardiovascular Rate/Rhythm: regular rate and regular rhythm; not tachycardic Heart Sounds: normal S1 and normal S2; no murmur Gastrointestinal (Abdomen) Inspection/Auscultation: normal bowel sounds; abdomen not distended Percussion/Palpation: abdomen soft; abdomen nontender Neurologic normal touch/pain/proprioception and moves all extremities Lymphatic no cervical or axillary lymphadenopathy Discharge Data Allergies Allergy/AdvReac Type Severity Reaction Status Date / Time No Known Allergies Allergy Unverified 10/29/22 12:37 Consultations 10/29/22 14:31 ED Decision to Admit Stat 10/29/22 15:00 Consult General Surgery Routine Ordered Studies 10/29/22 10:07 US liver Stat 10/29/22 13:45 CT abd pelvis IV con only Stat Hospital Course (1) Gastroenteritis: Presented with nausea, vomiting, epigastric discomfort, fever with chills and diarrhea for the last 2 days Likely has viral gastroenteritis Will give IV fluid and electrolyte replacement Zofran for nausea and vomiting Symptoms resolved and the patient wants to go home and did not want to stay any longer in the hospital (2) Elevated liver enzymes: Noted to have very high LFTs involving AST and ALT without any obstructive features Denies any history of IV drug abuse, any blood transfusion, any prior history of hepatitis Ultrasound of the liver did show cholelithiasis without any cholecystitis Hepatitis panel has been sent We will monitor LFTs LFTs are better-but it is panel pending (3) Cholelithiasis: Very high LFTs Likely secondary to viral hepatitis Ultrasound did not show-cholelithiasis with biliary sludge with an abnormal appearing gallbladder Acute cholecystitis cannot be excluded We will consult surgery and keep the patient n.p.o. for now We will get a HIDA scan She did not want to wait for the HIDA scan She knows that her condition may get worse with acute attack of cholecystitis and she even She was discharged in stable medical condition and was advised to make appointment with her PCP sooner than later (4) Chronic sinusitis: Continue with Jaqueline-D DVT prophylaxis Subcu heparin CODE STATUS Full Total Time Total Time Spent Total Time Spent (In Minutes): 35 minutes Discharge Plan Discharge Items Patient Disposition: Home - Self-Care Reason For Visit: N, V D WITH ABNORMAL LFT Discharge Diagnosis: Acute gastroenteritis, elevated transaminases, gallstones Condition on Discharge: Fair Activity: Resume your previous activity Non-emergency contact: Primary Care Provider Call non-emergency contact if: you have any medication questions and your symptoms worsen Follow-up/Referrals: PCP,NO [Primary Care Provider] - (Please make an appointment with your PCP within 7 days) Diet: Low Fat Addtl Attending Provider Instructions: Please take precautions to avoid falls Try to drink more fluid Please make appointments with your primary care doctor Pending Studies at Discharge: Yes Studies:: Hepatitis panel Stand-Alone Forms: My [employer], Smoking Cessation Medications and DC Order Prescriptions: Continued Claritin-D 24 Hour 10-240 mg Tablet Extended Release 24 Hr 1 tab PO DAILY ibuprofen [Advil] 200 mg Tablet 200 mg PO Q6H PRN (Reason: Pain) Discharge Orders: Discharge Order (Routine); Ordered 10/30/22 Ordered By: Courtney Mercado Admission Data Admit Date/Time: 10/29/22 14:39 Attending Provider: Courtney Mercado Admit Provider: Courtney Mercado Primary Care Provider: PCP,NO Other Providers: Courtney Mercado ; Aixa Kumar Other Interventions: Discharge Summary Assessment (RN) Last Done: 10/30/22 11:11
--- NOTE | 2022-10-30 22:48 | Electrocardiogram Report ---
Test Reason : Blood Pressure : / mmHG Vent. Rate : 082 BPM Atrial Rate : 082 BPM P-R Int : 148 ms QRS Dur : 066 ms QT Int : 368 ms P-R-T Axes : 050 -22 087 degrees QTc Int : 429 ms Normal sinus rhythm Low voltage QRS Septal infarct , age undetermined Inferior infarct , age undetermined Nonspecific T wave abnormality Abnormal ECG No previous ECGs available Confirmed by Alcides Valencia ([id number]) on 10/30/2022 10:48:07 PM Referred By: REFERRED SELF Confirmed By:Alcides Valencia
[2022-11-01 09:48] LABS: HBSAG NON-REACTIVE (NON-REACTIVE); Hepatitis A Antibody IgM NON-REACTIVE (NON-REACTIVE); Hepatitis B Core Antibody IgM NON-REACTIVE (NON-REACTIVE)
== END 2022-10-30 11:22 | disposition home or self-care (01) ==
LOC: 2N 07:48 → ED 07:48 → 2N 18:12